=== PATIENT | female | born 1955 | race Caucasian/White ===

== ENCOUNTER 2019-07-07 13:58 | Observation (INO) ==
[2019-07-07 16:04] LABS: Apearance,Urine CLEAR (Clear); Bacteria,Urine Occasional /HPF (Few); Basophils # 0.1 10*3/uL (0.0-0.2); Basophils % 1.1 % (0.0-0.8); Bilirubin,Urine Negative (Negative); Blood, Urine Moderate mg/dL (Negative); Eosinophils # 0.8 10*3/uL (0.0-0.87); Eosinophils % 6.5 % (0.00-10.9); Glucose,Urine (UA) Negative (Negative); Hemoglobin 15.7 GM/DL (12.0-16.0); Immature Granulocytes % 0.2 %; Immature Granulocytes Absolute 0.03 #; Ketones,Urine Negative (Negative); Lymphocytes # 4.1 10*3/uL (1.4-4.0); Lymphocytes % 31.6 % (21.3-54.2); Mean Corpuscular HGB Conc 33.4 GM/DL (32-36); Mean Corpuscular Volume 94.2 FL (87-102); Mean Platelet Volume 10.2 FL (9.6-12.0); Monocytes % 8.7 % (1.7-12.7); Mucus,Urine Occasional /LPF (Occasional); Neutrophils % 51.9 % (38.7-73.9); Nitrite,Urine Negative (Negative); Platelet Count 324 T/CUMM (130-400); Protein,Urine Negative; RBC,Urine 12 /HPF (0-4); Red Blood Count 4.99 MC/CUMM (3.8-5.5); Red Cell Distribution Width 13.5 % (9.3-17.3); Squamous Epithelial Cell,Urine Occasional /HPF (0-10); Urine Color Yellow (Yellow); Urine Specific Gravity 1.015 (1.001-1.035); Urine Urobilinogen < 2.0 EU/DL (0.2-1.0); WBC,Urine 2 /HPF (0-6); White Blood Count 12.8 T/CUMM (4-12)
[2019-07-07 16:27] LABS: Albumin 3.9 G/DL (3.4-5.0); Calcium 9.3 MG/DL (8.5-10.1); Osmolality,Calculated 282.3 MOS/KG (273-304); Total Protein 7.8 G/DL (6.4-8.3)
[2019-07-07] MEDS ORDERED: ASPIRIN EC 325 MG TABLET PO STA (16:38)
[2019-07-07] MEDS ORDERED: ONDANSETRON 4 MG/2 ML VIAL IV PRN (17:44)
[2019-07-07] MEDS ORDERED: ACETAMINOPHEN 325 MG TABLET PO PRN (17:44)
[2019-07-07] MEDS ORDERED: GLUCAGON 1 MG VIAL IM PRN (18:22)
[2019-07-07] MEDS ORDERED: DEXTROSE 10% 250 ML BAG IV PRN (18:22)
[2019-07-07] MEDS ORDERED: ALUM/MAG/SIMETH/LIDO VISC 1:1 30 ML BOTTLE PO ONE (18:25)
[2019-07-07] MEDS: ALBUTEROL/IPRATROPIUM 3 ML NEB RESP TX SCH (19:10)
[2019-07-07] MEDS ORDERED: PROMETHAZINE 25 MG/1 ML VIAL IM PRN (21:12)
[2019-07-07] MEDS ORDERED: ALBUTEROL 2.5 MG/3 ML NEB RESP TX PRN (21:13)
[2019-07-07] MEDS: INSULIN LISPRO 100 UNIT/ML SUBCUT SCH (21:18)
[2019-07-07] MEDS ORDERED: CLORAZEPATE 3.75 MG TABLET PO PRN (21:21)
[2019-07-07] MEDS: cloNIDine 0.1 MG TABLET PO SCH (22:04)
[2019-07-07 22:46] LABS: Troponin I < 0.015 NG/ML (0.00-0.045)
[2019-07-08] MEDS: ALBUTEROL/IPRATROPIUM 3 ML NEB RESP TX SCH ×3 (00:19→13:50)
[2019-07-08 05:26] LABS: Basophils # 0.1 10*3/uL (0.0-0.2); Basophils % 0.9 % (0.0-0.8); Eosinophils # 0.1 10*3/uL (0.0-0.87); Hematocrit 42.5 VOL% (35.7-47.0); Hemoglobin 14.1 GM/DL (12.0-16.0); Immature Granulocytes % 0.3 %; Immature Granulocytes Absolute 0.04 #; Lymphocytes # 3.7 10*3/uL (1.4-4.0); Lymphocytes % 28.7 % (21.3-54.2); Mean Corpuscular HGB Conc 33.2 GM/DL (32-36); Mean Platelet Volume 10.3 FL (9.6-12.0); Monocytes % 7.4 % (1.7-12.7); Neutrophils % 61.7 % (38.7-73.9); Platelet Count 293 T/CUMM (130-400); Red Blood Count 4.52 MC/CUMM (3.8-5.5); Red Cell Distribution Width 13.4 % (9.3-17.3); White Blood Count 12.8 T/CUMM (4-12)
[2019-07-08 05:55] LABS: Calcium 9.2 MG/DL (8.5-10.1); Osmolality,Calculated 283.1 MOS/KG (273-304); Risk Ratio 4.45; Thyroid Stimulating Hormone 1.47 uIU/ml (0.358-3.74); VLDL CHOLESTEROL 20.4 MG/DL
[2019-07-08] MEDS ORDERED: POTASSIUM CHLORIDE 20 MEQ TABLET PO ONE (07:22)
[2019-07-08 08:38] LABS: Troponin I < 0.015 NG/ML (0.00-0.045)
[2019-07-08] MEDS ORDERED: REGADENOSON 0.4 MG/5 ML SYRINGE IV ONE (08:54)
[2019-07-08] MEDS ORDERED: hydroCHLOROthiazide 12.5 MG CAPSULE PO SCH (09:00)
[2019-07-08] MEDS ORDERED: amLODIPine 10 MG TABLET PO SCH (09:00)
[2019-07-08] MEDS ORDERED: Vortioxetine [Trintellix] 10 MG PO SCH (09:00)
[2019-07-08] MEDS ORDERED: NON-FORMULARY MEDICATION (Tiotropium Bromide [Spiriva With Handihaler] 1 CAPSULE) INH SCH (09:00)
[2019-07-08] MEDS ORDERED: PANTOPRAZOLE 40 MG TABLET PO SCH (09:00)
[2019-07-08] MEDS: INSULIN LISPRO 100 UNIT/ML SUBCUT SCH ×2 (09:02→13:41)
[2019-07-08] MEDS: cloNIDine 0.1 MG TABLET PO SCH (09:49)
[2019-07-08] MEDS ORDERED: FLUTICASONE 50 MCG NASAL SPRAY 16 GM BOTTLE BOTH NARES SCH (10:30)
[2019-07-08 12:20] VITALS: BP 127/88
[2019-07-08] MEDS ORDERED: MIRTAZAPINE 15 MG TABLET PO SCH (21:00)
== END 2019-07-08 16:15 | disposition home or self-care (01) ==
LOC: N.EDINP 13:58 → N.ED 13:58 → N.2W 13:58
PROVIDERS: ADMIT Nurse Practitioner; ATTEND Internal Medicine